=== PATIENT | female | born 1935 | race Caucasian/White ===

== ENCOUNTER → 2016-10-28 16:40 | Outpatient (CLI) | payer MEDICARE ==
[2016-04-30 16:26] VITALS: BMI 26.6
[~2016-10-28 16:40] MED LIST: AMBIEN10 MG PO; ASPIRIN81 MG PO; COUMADIN2 MG PO; COUMADIN3 MG PO; COUMADIN4 MG PO; COUMADIN6 MG PO; DEXILANT30 MG PO; GABAPENTIN100 MG PO; LEVOTHROID200 MCG PO; LISINOPRIL5 MG PO; LOMOTIL TABLET1 TAB PO; MOBIC7.5 MG PO; NEPHRO-VITE RX1 TAB PO; NEURONTIN 300300 MG PO; NORVASC5 MG PO; PLAVIX75 MG PO; PREDNISONE5 MG PO; PREDNISONE50 MG PO; PROTEIN LIQUID30 ML PO; PROTONIX40 MG PO; RENVELA800 MG PO; SYNTHROID100 MCG PO; TOPROL XL25 MG PO; ZANAFLEX4 MG PO; ZOLOFT50 MG PO
== END | disposition home or self-care (01) ==
LOC: D.MAMMO 08:30
DX: N63 Unspecified lump in breast (principal); R19.01 Right upper quadrant abdominal swelling, mass and lump

== ENCOUNTER 2016-11-05 21:01 | Emergency (ER) | payer MEDICARE ==
[2016-04-30 16:26] VITALS: BMI 26.6
[~2016-11-05 21:01] MED LIST changes: -NEURONTIN 300300 MG PO; -SYNTHROID100 MCG PO
[2016-11-05 22:32] LABS: BASOPHILS 0.5 % (0.0-2.0); EOSINOPHILS 2.3 % (0-7); HEMATOCRIT 34.5 % (36.0-48.0); IMMATURE GRANULOCYTES 0.3 % (0-5); LYMPHOCYTES 17.1 % (15-50); MCH 31.5 pg (26.0-34.0); MCHC 31.9 g/dL (31.0-37.0); MCV 98.9 fL (80.0-100.0); MEAN PLATELET VOLUME 11.2 fL (7.4-10.4); MONOCYTES 11.5 % (2-11); NEUTROPHILS 68.3 % (40-80); PLATELET COUNT 197 10x3/uL (130-400); RBC 3.49 10x6/uL (4.00-5.40); RDW 14.9 % (11.5-14.5); WBC 6.5 10x3/uL (4.8-10.8)
[2016-11-05 22:55] LABS: ALBUMIN 2.4 g/dL (3.4-5.0); ANION GAP 15.6 mmol/L (8-16); BILIRUBIN - TOTAL 0.49 mg/dL (0.2-1.3); CALCIUM 8.6 mg/dL (8.5-10.1); CARBON DIOXIDE 27.7 mmol/L (21.0-32.0); CREATININE - SERUM 4.6 mg/dL (0.6-1.3); POTASSIUM - SERUM 3.3 mmol/L (3.5-5.1); PROTEIN - SERUM 7.1 g/dL (6.4-8.2)
[2016-11-05 23:04] LABS: MAGNESIUM - SERUM 1.7 mg/dL (1.8-2.4); TROPONIN-I 0.038 ng/mL (0.000-0.060)
== END 2016-11-06 03:00 | disposition home or self-care (01) ==
LOC: D.ER 21:01
PROVIDERS: Emergency Medicine
DX: R53.1 Weakness (principal); E83.42 Hypomagnesemia; E87.6 Hypokalemia; N18.6 End stage renal disease; I12.9 Hypertensive chronic kidney disease with stage 1 through stage 4 chronic kidney disease, or unspecified chronic kidney disease; N18.9 Chronic kidney disease, unspecified

== ENCOUNTER 2016-11-08 06:53 | Emergency (ER) | payer MEDICARE ==
[2016-04-30 16:26] VITALS: BMI 26.6
== END 2016-11-08 09:34 | disposition home or self-care (01) ==
LOC: D.ER 06:53
DX: R53.1 Weakness (principal); S30.1XXA Contusion of abdominal wall, initial encounter; X58.XXXA Exposure to other specified factors, initial encounter; Y93.89 Activity, other specified; Y92.89 Other specified places as the place of occurrence of the external cause; I12.0 Hypertensive chronic kidney disease with stage 5 chronic kidney disease or end stage renal disease; N18.6 End stage renal disease

== ENCOUNTER 2016-11-10 09:44 | Emergency (ER) | payer MEDICARE ==
[2016-04-30 16:26] VITALS: BMI 26.6
[2016-11-10 10:14] LABS: BASOPHILS 0.1 % (0.0-2.0); EOSINOPHILS 0.7 % (0-7); HEMATOCRIT 35.6 % (36.0-48.0); HEMOGLOBIN 11.3 g/dL (12-16); IMMATURE GRANULOCYTES 0.3 % (0-5); LYMPHOCYTES 18.2 % (15-50); MCH 31.7 pg (26.0-34.0); MCHC 31.7 g/dL (31.0-37.0); MEAN PLATELET VOLUME 11.3 fL (7.4-10.4); MONOCYTES 7.9 % (2-11); NEUTROPHILS 72.8 % (40-80); PLATELET COUNT 167 10x3/uL (130-400); RBC 3.56 10x6/uL (4.00-5.40); RDW 14.9 % (11.5-14.5); WBC 7.3 10x3/uL (4.8-10.8)
[2016-11-10 10:36] LABS: ALBUMIN 2.2 g/dL (3.4-5.0); BILIRUBIN - TOTAL 0.5 mg/dL (0.2-1.3); CALCIUM 9.5 mg/dL (8.5-10.1); CARBON DIOXIDE 24.5 mmol/L (21.0-32.0); POTASSIUM - SERUM 3.5 mmol/L (3.5-5.1); PROTEIN - SERUM 7.1 g/dL (6.4-8.2)
[2016-11-11] MEDS ORDERED: SYNTHROID100 MCG PO (10:17)
[2016-11-11] MEDS ORDERED: NEURONTIN 300300 MG PO (10:19)
== END 2016-11-10 11:05 | disposition home or self-care (01) ==
LOC: D.ER 09:44
PROVIDERS: Emergency Medicine
DX: N64.4 Mastodynia (principal); R10.9 Unspecified abdominal pain; M79.89 Other specified soft tissue disorders; I12.0 Hypertensive chronic kidney disease with stage 5 chronic kidney disease or end stage renal disease; N18.6 End stage renal disease; F17.200 Nicotine dependence, unspecified, uncomplicated

== ENCOUNTER 2016-11-11 09:31 | Inpatient (IN) | payer MEDICARE ==
[2016-11-11] VITALS (11 sets, daily range): BP systolic 101–114; BP diastolic 34–63; BMI 25.9
[~2016-11-11] VITALS: Ht 160 cm; Wt 70.6 kg
[2016-11-11] MEDS ORDERED: SYNTHROID100 MCG PO (10:17)
[2016-11-11] MEDS ORDERED: NEURONTIN 300300 MG PO (10:19)
--- NOTE | 2016-11-11 10:29 | NUR ---
PT TO FLOOR. ADMISSION COMPLETE. COMPLETED ADMISSION TO THE BEST OF MY ABILITY PT IS VERY LETHARGIC AND NOT ANSWERING SOME QUESTIONS. WILL CALL [facility] FOR ORDERS. PT IN NO DISTRESS VS WNL WILL CONT TO MONITOR.
--- NOTE | 2016-11-11 10:52 | NUR ---
TALKED TO DIETER ABOUT PT BEING SO LETHARGIC. HER BP IS LOW. DIETER SAID TO WATCH HER CLOSELY. CALL HER IF BP DROPS AND STAYS THERE.
--- NOTE | 2016-11-11 11:30 | NUR ---
KENNEDY VALENTIN TRIED TO SITE PT PIV. KENNEDY CALLED MARKIE VASCULAR NURSE TO TRY AND SITE PT.
[2016-11-11 12:08] LABS: BASOPHILS 0.4 % (0.0-2.0); EOSINOPHILS 2.2 % (0-7); HEMATOCRIT 35.4 % (36.0-48.0); IMMATURE GRANULOCYTES 0.3 % (0-5); LYMPHOCYTES 18.3 % (15-50); MCH 31.6 pg (26.0-34.0); MCHC 31.1 g/dL (31.0-37.0); MCV 101.7 fL (80.0-100.0); MEAN PLATELET VOLUME 12.3 fL (7.4-10.4); MONOCYTES 10.5 % (2-11); NEUTROPHILS 68.3 % (40-80); PLATELET COUNT 170 10x3/uL (130-400); RBC 3.48 10x6/uL (4.00-5.40); RDW 15.4 % (11.5-14.5); WBC 7.7 10x3/uL (4.8-10.8)
[2016-11-11 12:17] LABS: INR 1.71 (0.85-1.17)
[2016-11-11 12:18] LABS: APTT 45.9 SECONDS (22.8-39.4)
--- NOTE | 2016-11-11 12:23 | NUR ---
TALKED AGAIN WITH DIETER ABOUT PT. ASKED IF LEAVE NPO UNIL DR SANTIAGO SEES PT SHE SAID YES. SAID TO CALL HER FOR ANY CHANGE IN PT STATUS. BP STILL HOLDING 111/63. PT VERY LETHARGIC
[2016-11-11 12:24] LABS: ALBUMIN 2.1 g/dL (3.4-5.0); BILIRUBIN - TOTAL 0.5 mg/dL (0.2-1.3); CALCIUM 9.1 mg/dL (8.5-10.1); PHOSPHOROUS 7.4 mg/dL (2.5-4.9); PROTEIN - SERUM 6.1 g/dL (6.4-8.2)
[2016-11-11 12:26] LABS: ANION GAP 17.2 mmol/L (8-16); POTASSIUM - SERUM 4.2 mmol/L (3.5-5.1)
--- NOTE | 2016-11-11 12:51 | NUR ---
PLACED TELE ON PT. SINUS RHYTHM PACED. 60 BPM. WAITING ON MARKIE TO SITE PT THEN WILL START FLUIDS DIETER ORDERED.
--- NOTE | 2016-11-11 14:27 | NUR ---
MARKIE SITED PT TO LEFT FA 22G. FLUIDS INFUSING AT 40CC/HR NO PROBLEMS. PT STILL LETHARGIC BUT VS STILL WNL. WILL CONT TO MONITOR.
--- NOTE | 2016-11-11 14:54 | NUR ---
CALLED TO PT ROOM. PT O2 SATS 80% ON RA AND BP 104/35. PT LETHARGIC HARD TO WAKE UP. PAGED DIETER.
--- NOTE | 2016-11-11 15:22 | NUR ---
DIETER SAID TO TRANSFER PT TO ICU. WAITING ON BED NUMBER FROM [facility]
--- NOTE | 2016-11-11 15:46 | NUR ---
CALLED REPORT TO IVAN IN ICU. TRANSFERING TO ROOM [id number]
--- NOTE | 2016-11-11 16:22 | NUR ---
1610 PT TRANSFERRED TO ICU VIA BED. PT STABLE AT THIS TIME. PT ON MONITOR AND NORMAL SINUS AT THIS TIME. PT ABLE TO FOLLOW COMMANDS AND VERBALIZE UNDERSTANDING OF TEACHING. PT RESTING AT THIS TIME. WILL CONTINUE TO MONITOR CLOSELY.
--- NOTE | 2016-11-11 18:43 | NUR ---
1800 PT ATTEMPTING TO EAT DINNER BUT FALLING ASLEEP DURING MEAL. EASILY AROUSED BUT FREQUENTLY DROWSY. VITAL SIGNS STABLE. NO FURTHER CHANGES AT THIS TIME.
--- NOTE | 2016-11-11 19:30 | NUR ---
RECEIVED PATIENT IN BED WITH EYES CLOSED, ASSESSMENT COMPLETED PER FLOWSHEET. PATIENT IS LETHARGIC BUT ORIENTED, DEMEANOR IS PLEASANT BUT FALLS ASLEEP QUICKLY. ORAL/NASAL MUCOSA IS MOIST AND INTACT, TONGUE IS MIDLINE. S1/S2 NOTED PATIENT NSR ON TELEMETRY WITH PACEMAKER, RHYTHMIC AND REGULAR. BREATHING IS SHALLOW WITH DIMINISHED SOUNDS IN ALL LOBES, PATIENT ON 4L O2 VIA NC WITH SAT 96%. ABDOMEN IS DISTENDED AND FIRM BUT NON-TENDER TO PALPATION, BOWEL SOUNDS ACTIVE X4. FIRM AREA R ABDOMEN WITH BRUISING PRESENT, PATIENT STATES NO PAIN AT SITE. FULL ROM ALL EXTREMITIES WITH ALL PULSES PALPABLE, INSTRUMENT SETTER/PEDAL STRENGTH EQUAL/BILATERAL. PATIENT R ARM RESERVE WITH HERO GRAFT IN R ARM, T/TH/SAT DIALYSIS PATIENT. 20G PIV NOTED L WRIST, PATENT WITH FLUIDS INFUSING. PATIENT DENIES PAIN OR OTHER NEEDS AT THIS TIME, ALL VSS AND WILL CONTINUE TO MONITOR.
--- NOTE | 2016-11-11 21:00 | NUR ---
NO VISITORS AT THIS TIME, PATIENT RESTING IN BED WITH EYES CLOSED. PATIENT LETHARGIC BUT AWAKENS TO VOICE/TOUCH EASILY, DENIES NEEDS AT THIS TIME/ ALL VSS AND WILL CONTINUE TO MONITOR.
--- NOTE | 2016-11-11 23:00 | NUR ---
REASSESSMENT COMPLETED PER FLOWSHEET, PATIENT RESTING IN BED WITH EYES CLOSED. NSR WITH PACEMAKER ON TELEMETRY, S1/S2 NOTED WITH HR 61. BREATHING IS SHALLOW WITH DIMINISHED SOUNDS THROUGHOUT, 4L VIA NC WITH OXYGEN SAT 96%. PATIENT OPENS EYES TO VOICE AND WILL REPOSITION INDEPENDENTLY, STILL DOES NOT FOLLOW COMMANDS. NO FURTHER NEEDS AT THIS TIME, ALL VSS AND WILL CONTINUE TO MONITOR.
[2016-11-12] VITALS (21 sets, daily range): BP systolic 99–126; BP diastolic 33–68; Ht 160 cm; Wt 70.6 kg
--- NOTE | 2016-11-12 03:00 | NUR ---
REASSESSMENT COMPLETED PER FLOWSHEET, PATIENT RESTING IN BED WITH EYES CLOSED. PATIENT NSR WITH PACEMAKER ON TELEMETRY, HR 62 RHYTHMIC AND REGULAR. BREATHING IS SHALLOW WITH DIMINIHED LUNG SOUNDS IN ALL LOBES, OXYGEN SAT 97% ON 4L VIA NC. R LOWER ABDOMEN DISTENDED AND FIRM, NO C/O PAIN AT SITE AND NON-TENDER TO PALPATION. PATIENT STATES PAIN 3/10 IN BACK AND "JUST CAN'T GET COMFORTABLE", REPOSITIONED IN BED AND PATIENT STATES RELIEF. NO FURTHER NEEDS AT THIS TIME, ALL VSS AND WILL CONTINUE TO MONITOR.
[2016-11-12 05:03] LABS: BASOPHILS 0.2 % (0.0-2.0); EOSINOPHILS 3.3 % (0-7); HEMATOCRIT 33.1 % (36.0-48.0); HEMOGLOBIN 10.4 g/dL (12-16); IMMATURE GRANULOCYTES 0.5 % (0-5); MCH 31.2 pg (26.0-34.0); MCHC 31.4 g/dL (31.0-37.0); MEAN PLATELET VOLUME 12.6 fL (7.4-10.4); RBC 3.33 10x6/uL (4.00-5.40); RDW 14.8 % (11.5-14.5); WBC 8.5 10x3/uL (4.8-10.8)
[2016-11-12 05:21] LABS: MCV 99.4 fL (80.0-100.0); PLATELET COUNT 128 10x3/uL (130-400)
[2016-11-12 05:23] LABS: ANION GAP 19.1 mmol/L (8-16); CALCIUM 9.1 mg/dL (8.5-10.1); CREATININE - SERUM 7.8 mg/dL (0.6-1.3); POTASSIUM - SERUM 4.3 mmol/L (3.5-5.1)
[2016-11-12 05:47] LABS: INR 1.63 (0.85-1.17); PROTIME 19.3 SECONDS (11.6-15.0)
[2016-11-12 05:53] LABS: CARBON DIOXIDE 19.2 mmol/L (21.0-32.0)
--- NOTE | 2016-11-12 07:59 | NUR ---
0800- PT AWAKE AND ALERT, ORIENTED, VSS, AFEBRILE. BREAKFAST TRAY SERVED.
--- NOTE | 2016-11-12 12:02 | NUR ---
* Is the patient Alert and Oriented? Yes 0 * How many steps to enter\exit or inside your home? ELEVATOR 0 * PCP DR. BOND 0 * Pharmacy [facility] [address] 0 * Preadmission Environment Home Alone 0 * ADLs Independent 0 * Equipment Oxygen Rolling Walker Wheelchair 0 * Other Equipment PATENT'S O2 PROVIDED BY [facility] 0 * List name and contact numbers for known caregivers / representatives who currently or will assist patient after discharge: DAUGHTER: ALFREDO [phone] 0 * Community resources currently utilized None 0 * Additional services required to return to the preadmission environment? No 0 * Can the patient safely return to the preadmission environment? Yes 0 * Has this patient been hospitalized within the prior 30 days at any hospital? No PATIENT IS AWAKE AND ALERT. SHE IS UNDERGOING DIALYSIS AT THE BEDSIDE. PATIENT DOES DIALYSIS AT [facility] ON [facility] [facility] [facility]. SHE RIDES THE IT BUS TO AND FROM HER DIALYSIS ON , FRI. PATIENT STATES HER PCP IS DR. BOND. SHE GETS HER MEDS FROM [facility] ON [address] PATIENT STATES SHE HAS A WALKER, W/C, AND O2 AT HOME. PATIENT STATES SHE GETS HER O2 FROM [facility]. PATIENT STATES SHE HAD HOME HEALTH IN THE PAST BUT DOES NOT RECALL THE NAME OF THE AGENCY. PATIENT STATES THERE IS AN ELEVATOR TO ENTER HER BUILDING AT [facility]. SHE STATES THAT IF SHE NEEDS ASSISTANCE HER DAUTHER, ALFREDO, HELPS HER. DISCHARGE NEEDS ARE UNDETERMINED AT THIS TIME. CM TO FOLLOW.
--- NOTE | 2016-11-12 15:08 | NUR ---
HD COMPLETE, VSS. PT PRIYANKA WELL.
--- NOTE | 2016-11-12 19:30 | NUR ---
RECEIVED PATIENT RESTIN IN BED WITH EYES CLOSED, ASSESSMENT COMPLETED PER FLOWSHEET. PATIENT AO X4, DEMEANOR IS PLEASANT AND CALM. EYES PERRLA @ 3MM WITH BRISK RESPONSE, SCLERA IS WHITE. ORAL/NASAL MUCOSA IS MOIST AND INTACT, TONGUE MIDLINE. S1/S2 NOTED WITH PATIENT NSR WITH PACEMAKER ON TELEMETRY, HR 77 RHYTHMIC AND REGULAR. BREATHING IS SHALLOW WITH USE OF ACCESSORY MUSCLES, LUNG SOUNDS DIMINISHED ALL LOBES WITH OXYGEN SAT 96% ON 4L VIA NC. R LOWER ABDOMEN DISTENDED AND FIRM WITH BRUISING NOTED, BOWEL SOUNDS ACTIVE X4. PATIENT ANURIC, ABLE TO USE BEDPAN FOR VOIDING WHEN NEEDED. FULL ROM ALL EXTREMITIES WITH WEAKNESS NOTED ALL EXTREMITIES, ALL PULSES PALPABLE WITH CAP REFILL <3 SEC. 20G PIV NOTED L WRIST, PATENT WITH FLUIDS INFUSING. PATIENT DENIES PAIN OR OTHER NEEDS AT THIS TIME, ALL VSS AND WILL CONTINUE TO MONITOR.
--- NOTE | 2016-11-12 21:00 | NUR ---
PATIENT RESTING IN BED WITH EYES OPEN, C/O BACK PAIN 11/15. REPOSITIONED FOR COMFORT, PATIENT STATES "SOME RELIEF". NO FURTHER NEEDS AT THIS TIME, ALL VSS AND WILL CONTINUE TO MONITOR.
--- NOTE | 2016-11-12 23:00 | NUR ---
PATIENT RESTING IN BED WITH EYES CLOSED WITH THE TV ON. BREATHING IS SHALLOW WITH OXYGEN SAT 95% ON 4L VIA NC. S1/S2 NOTED WITH PATIENT NSR ON TELMETRY, HR 78 AND RHYTHMIC. NO FURTHER NEEDS AT THIS TIME, ALL VSS AND WILL CONTINUE TO MONITOR.
[2016-11-13] VITALS (12 sets, daily range): BP systolic 105–153; BP diastolic 36–76
--- NOTE | 2016-11-13 01:16 | NUR ---
PATIENT RESTING IN BED WITH EYES CLOSED. PATIENT C/O BACK PAIN 10/18, REPOSITIONED FOR COMFORT AND PATIENT STATE RELIEF. NO FURTHER NEEDS AT THIS TIME, ALL VSS AND WILL CONTINUE TO MONITOR.
--- NOTE | 2016-11-13 07:30 | NUR ---
REC'D BEDSIDE SHIFT REPORT FROM EDELMIRA, SUJATHA RESUMED CARE, SLEEPING WITH NO SIGNS OF DISTRES, AROUSABLE TO VERBAL STIMULI, ORIENTED x4, O2 VIA NC AT 4L, SAT 98%, C/O PAIN 10/10 ALL OVER BODY, PREVIOUSLY GIVEN BUPERNIX, ASSESSMENT COMPLETE PER FLOWSHEET, REPOSITIONED UP IN BED TO BACK FOR BREAKFAST, STATES NOT HUNGRY, DRINKING ONLY, CALL LIGHT IN REACH, NO OTHER NEEDS AT THIS TIME
[2016-11-13 07:41] LABS: BASOPHILS 0.2 % (0.0-2.0); EOSINOPHILS 1.8 % (0-7); HEMATOCRIT 30.5 % (36.0-48.0); HEMOGLOBIN 9.5 g/dL (12-16); IMMATURE GRANULOCYTES 0.1 % (0-5); MCH 31.3 pg (26.0-34.0); MCHC 31.1 g/dL (31.0-37.0); MCV 100.3 fL (80.0-100.0); MEAN PLATELET VOLUME 12.2 fL (7.4-10.4); MONOCYTES 10.9 % (2-11); PLATELET COUNT 152 10x3/uL (130-400); RBC 3.04 10x6/uL (4.00-5.40); RDW 14.5 % (11.5-14.5); WBC 8.7 10x3/uL (4.8-10.8)
[2016-11-13 07:56] LABS: INR 1.9 (0.85-1.17); PROTIME 21.8 SECONDS (11.6-15.0)
[2016-11-13 08:22] LABS: CREATININE - SERUM 6.6 mg/dL (0.6-1.3); PHOSPHOROUS 7.1 mg/dL (2.5-4.9); VANCOMYCIN - RANDOM 16.1 ug/mL (10.0-20.0)
[2016-11-13 08:36] LABS: ANION GAP 16.9 mmol/L (8-16); CARBON DIOXIDE 25.7 mmol/L (21.0-32.0); POTASSIUM - SERUM 3.6 mmol/L (3.5-5.1)
--- NOTE | 2016-11-13 09:00 | NUR ---
REPORT CALLED TO KRISTY EDUARDO RN FOR PENDING TRANSFER
--- NOTE | 2016-11-13 09:20 | NUR ---
LEFT WRIST PIV PULLED OUT, SKINCARE AND GAUZE DRESSING APPLIED
--- NOTE | 2016-11-13 09:30 | NUR ---
TRANSPORTED TO 2107 VIA BED, AWAKE AND ALERT, NAUSEA WITH GREENISH EMESIS, ORAL CARE GIVEN, REPORTED TO KRISTY EDUARDO RN, PER TELEMERTY STAGECRAFT PROFESSOR WILL NO BE ABLE TO START UNTIL PENDING DISCHARGES ARE COMPLETED, REPOSITIONED UP AND TO BACK FOR COMFORT, ACCLAMATED TO ROOM, CALL RIGHT IN REACH, PRIMARY NURSE AT BEDSIDE, NO OTHER NEEDS AT THIS TIME
--- NOTE | 2016-11-13 09:42 | NUR ---
RECEIVED PT FROM ICU VIA BED AT THIS TIME. WILL CONTINUE PLAN OF CARE. NO OTHER NEEDS AT THIS TIME. WILL CONTINUE TO MONITOR.
--- NOTE | 2016-11-13 11:23 | NUR ---
PT IS ALERT. NO SS OF DISTRESS AT THIS TIME. WILL CONTINUE TO MONITOR. NO OTHER NEEDS
--- NOTE | 2016-11-13 12:00 | NUR ---
22G IV STARTED IN LEFT FA. SALINE LOCKED. PT TOLERATED WELL. PT REFUSES LUNCH TRAY.
--- NOTE | 2016-11-13 19:57 | NUR ---
INTRODUCED MYSELF TO PT PRIMARY RN FOR [facility] SHIFT. PT IS SITTING UP IN BED RESTING QUIETLY. ALERT & ORIENTED. SHIFT ASSESSMENT COMPLETED AND STATISTICS MANAGER MAKING ROUNDS FOR VITALS. PT DENIES ANY CURRENT NEEDS AT THIS TIME WILL PULL NIGHTLY SCHEDULED MEDICATIONS AND CONTINUE WITH PLAN OF CARE. CL IN REACH, BED IN LOWEST, SIDE RAILS X2.
[2016-11-14] VITALS: BP 179/46
[2016-11-14 04:00] VITALS: BP 153/56
[2016-11-14 04:38] LABS: BASOPHILS 0.1 % (0.0-2.0); EOSINOPHILS 1.2 % (0-7); HEMATOCRIT 30.7 % (36.0-48.0); HEMOGLOBIN 9.6 g/dL (12-16); IMMATURE GRANULOCYTES 0.3 % (0-5); LYMPHOCYTES 13.9 % (15-50); MCH 30.8 pg (26.0-34.0); MCHC 31.3 g/dL (31.0-37.0); MCV 98.4 fL (80.0-100.0); MEAN PLATELET VOLUME 12.3 fL (7.4-10.4); MONOCYTES 8.6 % (2-11); NEUTROPHILS 75.9 % (40-80); PLATELET COUNT 170 10x3/uL (130-400); RBC 3.12 10x6/uL (4.00-5.40); RDW 14.7 % (11.5-14.5)
[2016-11-14 04:58] LABS: INR 2.12 (0.85-1.17); PROTIME 23.8 SECONDS (11.6-15.0)
[2016-11-14 05:01] LABS: ANION GAP 15.9 mmol/L (8-16); CALCIUM 9.6 mg/dL (8.5-10.1); CARBON DIOXIDE 28.3 mmol/L (21.0-32.0); CREATININE - SERUM 7.8 mg/dL (0.6-1.3); PHOSPHOROUS 8.7 mg/dL (2.5-4.9)
[2016-11-14 05:07] LABS: POTASSIUM - SERUM 4.2 mmol/L (3.5-5.1)
[2016-11-14 07:00] VITALS: BP 147/45
--- NOTE | 2016-11-14 08:00 | NUR ---
PATIENT AWAKE, ALERT/ORIENT X4. TELEMTRY IN PLACE. PACEMAKER NOTED. LEFT BREAST IV SITE. RESERVE RIGHT ARM MAINTAINED. PATIENTS BED DOES NOT WORK. WORK ORDER IN.
--- NOTE | 2016-11-14 09:10 | NUR ---
DIALYSIS AT BS. CALL LIGHT IN REACH. WILL MONITOR NEEDS.
--- NOTE | 2016-11-14 09:40 | NUR ---
CRYSTALLOGRAPHER IN PATIENTS ROOM. GIVING TX.
--- NOTE | 2016-11-14 11:35 | NUR ---
PRN BURPRENEX GIVEN FOR BREAST PAIN.
[2016-11-14 12:02] VITALS: BP 124/48
--- NOTE | 2016-11-14 13:26 | NUR ---
Mrs. Elizalde had bedside hemodialysis today via her right upper arm av graft from 0925 until 1255. Average blood flow was 350 mls/minute. Pt. was hypotensive during treatment. Net fluid removed was 1500 mls. Post vital signs were: B/P: 105/40, HR:77, Temp:98.2, Resps:20.
--- NOTE | 2016-11-14 13:27 | NUR ---
RESEARCH SOIL SCIENTIST GAVE REPORT TO THIS NURSE. STATED THAT 1,500CC FLUID HAS BEEN DRAINED OFF OF PATIENT.
--- NOTE | 2016-11-14 14:34 | NUR ---
SUJATHA BERNARD CHARGE NURSE IN PATIENTS ROOM DOING AN ELECTROCARDIOGRAM.
[2016-11-14 14:49] LABS: BASOPHILS 0.1 % (0.0-2.0); EOSINOPHILS 0.6 % (0-7); HEMATOCRIT 29.6 % (36.0-48.0); HEMOGLOBIN 9.5 g/dL (12-16); IMMATURE GRANULOCYTES 0.3 % (0-5); LYMPHOCYTES 6.9 % (15-50); MCH 31.3 pg (26.0-34.0); MCHC 32.1 g/dL (31.0-37.0); MCV 97.4 fL (80.0-100.0); MEAN PLATELET VOLUME 12.9 fL (7.4-10.4); MONOCYTES 8.4 % (2-11); NEUTROPHILS 83.7 % (40-80); PLATELET COUNT 180 10x3/uL (130-400); RBC 3.04 10x6/uL (4.00-5.40); RDW 14.4 % (11.5-14.5); WBC 9.9 10x3/uL (4.8-10.8)
[2016-11-14 15:10] LABS: ANION GAP 14.1 mmol/L (8-16); CALCIUM 8.7 mg/dL (8.5-10.1); CARBON DIOXIDE 32.1 mmol/L (21.0-32.0)
[2016-11-14 15:12] LABS: CREATININE - SERUM 2.8 mg/dL (0.6-1.3); POTASSIUM - SERUM 3.2 mmol/L (3.5-5.1)
[2016-11-14 15:27] VITALS: BP 138/39
--- NOTE | 2016-11-14 17:25 | NUR ---
PATIENT PULLED UP IN BED TO EAT SUPPER.
[2016-11-14 20:00] VITALS: BP 131/44
[2016-11-15] VITALS (8 sets, daily range): BP systolic 131–147; BP diastolic 37–53
--- NOTE | 2016-11-15 01:48 | NUR ---
PT AWAKE WATCHING TV. RR NONLABORED ON 2L NC. ASSISTED PT REPOSTIONING FOR COMFORT. PT DENIES ANY CURRENT PAIN AND STATES SHE IS COMFORTABLY. NO CURRENT NEEDS AT THIS TIME. CL IN REACH. WILL CTM.
--- NOTE | 2016-11-15 05:37 | NUR ---
HELD MORNING AM PROTONIX AND SYNTHROID R/T NPO ORDER FOR R.MASTECTOMY TODAY. PT REQUESTED AND WAS PROVIDED WITH PRN PAIN MEDICATION VIA L.BREAST PIV SITE. DRSG CDI AND SWAB CAPS IN USE. PT RESTING AND DENIES ANY FURTHER NEEDS AT THIS TIME. CL IN REACH, BED IN LOWEST, SIDE RAILS X2. WILL CPOC.
[2016-11-15 06:15] LABS: BASOPHILS 0.1 % (0.0-2.0); EOSINOPHILS 0.8 % (0-7); HEMATOCRIT 29.5 % (36.0-48.0); HEMOGLOBIN 9.2 g/dL (12-16); IMMATURE GRANULOCYTES 0.3 % (0-5); LYMPHOCYTES 12.3 % (15-50); MCH 31.1 pg (26.0-34.0); MCHC 31.2 g/dL (31.0-37.0); MCV 99.7 fL (80.0-100.0); MEAN PLATELET VOLUME 12.3 fL (7.4-10.4); MONOCYTES 9.3 % (2-11); NEUTROPHILS 77.2 % (40-80); PLATELET COUNT 188 10x3/uL (130-400); RBC 2.96 10x6/uL (4.00-5.40); RDW 14.6 % (11.5-14.5); WBC 9.5 10x3/uL (4.8-10.8)
[2016-11-15 06:44] LABS: ANION GAP 15.1 mmol/L (8-16); CALCIUM 9.5 mg/dL (8.5-10.1); CARBON DIOXIDE 30.2 mmol/L (21.0-32.0); POTASSIUM - SERUM 3.3 mmol/L (3.5-5.1)
[2016-11-15 06:47] LABS: CREATININE - SERUM 4.3 mg/dL (0.6-1.3); PHOSPHOROUS 5.4 mg/dL (2.5-4.9)
[2016-11-15 08:39] LABS: INR 2.21 (0.85-1.17); PROTIME 24.6 SECONDS (11.6-15.0)
--- NOTE | 2016-11-15 10:14 | NUR ---
PRN BUPRENEX ADMINISTERED PER ORDERS FOR C/O PAIN 04/17.
--- NOTE | 2016-11-15 10:53 | NUR ---
PATIENT PATHWYAS: [facility] Fri/Fri/Fri @ 11:00am. Med recs sent to the unit. BMM Dialysis Coordinator.
--- NOTE | 2016-11-15 13:29 | NUR ---
PRE OP ADMINISTERED PER ORDERS.
--- NOTE | 2016-11-15 14:29 | NUR ---
DOWN TO SURGERY VIA BED.
--- NOTE | 2016-11-15 15:17 | NUR ---
RECEIVED PATIENT LAYING IN BED. ALERT AND ORIENTED. LABILE AEB TALKING CALMLY ONE MINUTE AND THE NEXT WILL BE TEARFUL. C/O CONSTANT PAIN TO THE BREASTS AND ABDOMEN RATED 10/10. IV OF NS INFUSING AT 20CC/HR PER LEFT BREAST AREA. O2 AT 2L/MIN PER NC IN USE. BRUISING TO UPPER EXTS AND BRUISING WITH DARK LESION TO RIGHT BREAST NIPPLE AREA AND BRUISING TO ABDOMEN BELOW BREASTS. NPO FOR SURGERY TODAY. BRUIT AND THRILL PRESENT TO RIGHT UPPER ARM HERO GRAFT. BED IN LOW POSITION AND CALL LIGHT WITHIN REACH.
--- NOTE | 2016-11-15 15:46 | NUR ---
NOR REDOSING OF ANTIBIOTICS BEFORE SURGICAL INCISION PER DR. SANTIAGO
--- NOTE | 2016-11-15 18:55 | NUR ---
HOLDING TIME IN RECOVERY DUE TO NO ICU BEDS. THE PATIENT REMAINS STABLE IN RR
--- NOTE | 2016-11-15 19:56 | NUR ---
PT ARRIVED FROM PACU VIA BED AND SCORTED BY 2 OR STAFF. PT WAS CONNECTED TO MONITORS AND VITALS TAKEN. A FULL HEAD TO TOE ASSESSMENT WAS COMPLETE, PLEASE SEE FLOW SHEETS FOR FULL DETAILS. DENIES PAIN/NEEDS ATT. LARGE WOUND VAC TO RIGHT UPPER ABDOMINAL AREA WHERE MASTECTOMY WAS PERFORMED. PIV IN LEFT WRIST WITH NS INFUSING AT 20ML/HR. OXYMIZER ON AT 4L/M. VSS, BED LOW AND LOCKED, CALL LIGHT IN REACH. WILL CONTINUE TO MONITOR.
--- NOTE | 2016-11-15 21:00 | NUR ---
DENIES PAIN/NEEDS ATT, OFFERED SIPS OF WATER AND WERE TOLERATED WELL. BED LOW AND LOCKED, CALL LIGHT IN REACH. WILL CONTINUE TO MONITOR.
--- NOTE | 2016-11-15 23:05 | NUR ---
REASSESSMENT COMPLETE, PLEASE SEE FLOW SHEETS FOR DETAILS. VSS, BED LOW AND LOCKED. DENIES PAIN/NEEDS ATT. CALL LIGHT IN REACH. WILL CONTINUE TO MONITOR.
[2016-11-16] VITALS (24 sets, daily range): BP systolic 83–141; BP diastolic 33–78
--- NOTE | 2016-11-16 00:54 | NUR ---
PT SLEEPING, NO S&S OF ACUTE DISTRESS NOTED. VSS, BED LOW AND LOCKED. CALL LIGHT IN REACH. WILL CONTINUE TO MONTIOR.
--- NOTE | 2016-11-16 03:00 | NUR ---
REASSESSMENT COMPLETE, PLEASE SEEF LOW SHEETS FOR DETAILS. VSS, DENIES PAIN/NEEDS ATT. BED LOW AND LOCKED, CALL LIGHT IN REACH. WILL CONTINUE TO MONITOR.
--- NOTE | 2016-11-16 05:03 | NUR ---
PT RESTING. VSS, BED LOW AND LOCKED, CALL LIGHT IN REACH. WILL CONTINUE TO MONITOR.
--- NOTE | 2016-11-16 07:00 | NUR ---
0700 REC'D REPORT FROM OUTGOING RN PT LYING IN BED WITH EYES CLOSED RESP REG RATE AND RHYTHM. CPOC. 0830 MEDICATIONS GIVEN - PT WILL REC'D DIALYSIS TODAY. PROFESSOR OF FORESTRY AT BEDSIDE TO SET UP PROCEDURE. 0900 MEDICATIONS GIVEN TO PT - PT UNABLE TO EAT BREAKFAST - PT WEAK AND FALLS ASLEEP EAISLY - WILL MONITOR - INFORMED RENEAL SHINGLE CATCHER - PT C/O PAIN 8/10 - ORDERS TO GIVE TYENOL q6HRS. FOR PAIN - - SEE FLOW SHEET 0944 PROFESSOR OF FORESTRY - PROVIDED A CHANGE IN RHYTHM - EKG COMPLETED - LEFT BUNDLE BRANCH BLOCK - PT DENIED ANY DISCOMFORT EXCEPT FROM INCISION. - MEDIATION GIVEN. 1100 ASSESSMENT COMPLETE - DIALYSIS CONT - CPOC 1300 TEACHER [employer] CALLED TO ASKED THIS RN TO CALL [facility] TO INFORM HER OF ANY CHANGES IN PTs CONDITION, ASLO, ASK DR. SANTIAGO TO SPEAK TO FAMILY WHEN HE ARRIVES. CONT POC. ~1400 DIALYSIS COMPLETE - PT RESTING WITH EYES CLOSED - EAISLY AWAKEN BY VERBAL STIMULI 1500 ASSESSMENT COMPLETE - NO ACUTE CHANGES 1600 I&O COMPLETE - SEE FLOW CHART 1800 FAMLY AT BEDSIDE PASSWORD "VÍCTOR YEH" ESTABLISHED 190 REPORT GIVEN TO ONCOMING RN.
[2016-11-16 08:06] LABS: BASOPHILS 0.4 % (0.0-2.0); EOSINOPHILS 2.1 % (0-7); HEMATOCRIT 32.2 % (36.0-48.0); HEMOGLOBIN 9.6 g/dL (12-16); IMMATURE GRANULOCYTES 0.4 % (0-5); LYMPHOCYTES 13.5 % (15-50); MCH 31.1 pg (26.0-34.0); MCHC 29.8 g/dL (31.0-37.0); MEAN PLATELET VOLUME 12.1 fL (7.4-10.4); MONOCYTES 8.8 % (2-11); NEUTROPHILS 74.8 % (40-80); RBC 3.09 10x6/uL (4.00-5.40); WBC 11.1 10x3/uL (4.8-10.8)
[2016-11-16 08:08] LABS: MCV 104.2 fL (80.0-100.0); PLATELET COUNT 236 10x3/uL (130-400)
[2016-11-16 08:22] LABS: ANION GAP 20.3 mmol/L (8-16); CALCIUM 9.2 mg/dL (8.5-10.1); CARBON DIOXIDE 24.8 mmol/L (21.0-32.0); PHOSPHOROUS 6.3 mg/dL (2.5-4.9)
[2016-11-16 08:31] LABS: CREATININE - SERUM 5.7 mg/dL (0.6-1.3); POTASSIUM - SERUM 4.1 mmol/L (3.5-5.1)
--- NOTE | 2016-11-16 15:19 | NUR ---
Mrs. Elizalde had bedside hemodialysis today via her right upper arm av graft from 0901 until 1230. Average blood flow was 350 mls/minute. Pt. was very hypotensive today requiring one normal saline bolus of 200 mls and one dose of albumin 12.5 grams IV. Net fluid was omly 377 mls. Pt. had some arrythmias as well and a 12 lead ekg was done which indicated a left bundle branch block. Her rhthym was paced often. Post vital signs were: B/P:120/42, HR: 98, Temp;98.1, Resps:18.
--- NOTE | 2016-11-16 19:00 | NUR ---
REPORT RECIEVED, INITIAL ASSESSMENT COMPLETE, PLEASE SEE FLOW SHEETS FOR DETAILS. PT COMPLAINS OF 6/10 AT INCISION SITE. DENIES NEEDS ATT. CONFUSED TO TIME, REORIENTED NECESSARY. PUPILS 3MM AND REACTIVE TO LIGHT. PPP. S1S2 AUSCULTATED, PACEMAKER PRESENT AT LEFT CLAVICUAR AREA. LUNG SOUNDS CRACKLES BILATERALLY AND DIMINISHED IN LOWER LOBES. VSS, BED LWO AND LOCKED, CALL LIGHT IN REACH. WILL CONTINUE TO MONITOR.
--- NOTE | 2016-11-16 21:00 | NUR ---
PT WOKE UP TO TAKE MEDS. SPILLED ON BLANKET AND GOWN, THESE WERE REPLACED WITH NEW ONES. BED LOW AND LOCKED, CALL LIGHT IN REACH. PT REQUESTED ICE WATER AND THIS WAS PROVIDED. VSS, WILL CONTINUE TO MONITOR.
--- NOTE | 2016-11-16 23:15 | NUR ---
REASSESSMENT COMPLETE, PLEASE SEE FLOW SHEETS FOR DETAILS. BED LOW AND LOCKED CALL LIGHT IN REACH. DENIES ANY PAIN ATT, VSS, WILL CONTINUE TO MONITOR.
[2016-11-17] VITALS (23 sets, daily range): BP systolic 103–182; BP diastolic 41–90
--- NOTE | 2016-11-17 01:00 | NUR ---
PT AWAKE, WATCHING TELEVISION. DENIES PAIN/NEEDS ATT. BED LOW AND LOCKED, CALL LIGHT IN REACH. VSS, NO S&S OF ACUTE DISTRESS NOTED. RR EVEN AND UNLABORED. WILL CONTINUE TO MONITOR.
--- NOTE | 2016-11-17 03:21 | NUR ---
REASSESSMENT COMPLETE, PLEASE SEE FLOW SHEETS FOR DETAILS. BED LOW AND LOCKED, CALL LIGHT IN REACH. VSS, DENIES PAIN/NEEDS ATT. WILL CONTINUE TO MONITOR.
--- NOTE | 2016-11-17 05:00 | NUR ---
PT RESTING, RR EVEN AND UNLABORED. VSS. BED LOW AND LOCKED, CALL LIGHT IN REACH. DENIES PAIN/NEEDS ATT. WILL CONTINUE TO MONITOR.
[2016-11-17 05:35] LABS: BASOPHILS 0.1 % (0.0-2.0); EOSINOPHILS 0.9 % (0-7); HEMATOCRIT 27.1 % (36.0-48.0); HEMOGLOBIN 8.4 g/dL (12-16); IMMATURE GRANULOCYTES 0.3 % (0-5); LYMPHOCYTES 13.6 % (15-50); MCH 31.3 pg (26.0-34.0); MEAN PLATELET VOLUME 11.9 fL (7.4-10.4); MONOCYTES 8.8 % (2-11); NEUTROPHILS 76.3 % (40-80); PLATELET COUNT 236 10x3/uL (130-400); RBC 2.68 10x6/uL (4.00-5.40); RDW 14.7 % (11.5-14.5); WBC 9.7 10x3/uL (4.8-10.8)
[2016-11-17 05:38] LABS: MCV 101.1 fL (80.0-100.0)
[2016-11-17 06:04] LABS: ANION GAP 16.1 mmol/L (8-16); CALCIUM 9.3 mg/dL (8.5-10.1); CARBON DIOXIDE 27.2 mmol/L (21.0-32.0); THYROID STIMULATING HORMONE 0.01 uIU/mL (0.36-3.74); VANCOMYCIN - RANDOM 18.2 ug/mL (10.0-20.0)
[2016-11-17 06:05] LABS: CREATININE - SERUM 3.4 mg/dL (0.6-1.3); PHOSPHOROUS 4.6 mg/dL (2.5-4.9); POTASSIUM - SERUM 3.3 mmol/L (3.5-5.1)
--- NOTE | 2016-11-17 19:00 | NUR ---
REPORT RECIEVED, INITIAL ASSESSMENT COMPLETE, PLEASE SEE FLOW SHEETS FOR DETAILS. PT COMPLAINED OF PAIN 8/10 AT INCISION SITE, WILL GIVE PAIN MEDS ORDERED. DENIES ANY OTHER NEEDS ATT. VSS, BED LOW AND LOCKED, CALL LIGHT IN REACH. WILL CONTINUE TO MONITOR.
--- NOTE | 2016-11-17 21:00 | NUR ---
PT RESTING, BED LOW AND LOCKED, CALL LIGHT IN REACH. VSS, WILL CONTINUE TO MONITOR.
--- NOTE | 2016-11-17 23:00 | NUR ---
REASSESSMENT COMPLETE, PLEASE SEE FLOW SHEETS FOR DETAILS. COMPLETE LINEN CHANGE PROVIDED. DENIES PAIN/NEEDS ATT. VSS, BED LOW AND LOCKED, CALL LIGHT IN REACH. WILL CONTINUE TO MONITOR.
[2016-11-18] VITALS (25 sets, daily range): BP systolic 102–163; BP diastolic 36–108
--- NOTE | 2016-11-18 01:00 | NUR ---
PT RESTING. VSS, BED LOW AND LOCKED, CALL LIGHT IN REACH. DENIES PAIN/NEEDS ATT. WILL CONTINUE TO MONITOR.
--- NOTE | 2016-11-18 03:00 | NUR ---
REASSESSMENT COMPLETE, PLEASE SEE FLOW SHEETS FOR DETAILS. BED LOW AND LOCKED, CALL LIGHT IN REACH. VSS, WILL CONTINUE TO MONITOR.
[2016-11-18 03:38] LABS: BASOPHILS 0.2 % (0.0-2.0); EOSINOPHILS 0.6 % (0-7); HEMATOCRIT 28.6 % (36.0-48.0); HEMOGLOBIN 8.8 g/dL (12-16); IMMATURE GRANULOCYTES 0.4 % (0-5); LYMPHOCYTES 7.6 % (15-50); MCH 30.7 pg (26.0-34.0); MCHC 30.8 g/dL (31.0-37.0); MCV 99.7 fL (80.0-100.0); MEAN PLATELET VOLUME 11.9 fL (7.4-10.4); MONOCYTES 8.9 % (2-11); NEUTROPHILS 82.3 % (40-80); PLATELET COUNT 283 10x3/uL (130-400); RBC 2.87 10x6/uL (4.00-5.40); RDW 14.5 % (11.5-14.5)
[2016-11-18 03:43] LABS: WBC 12.2 10x3/uL (4.8-10.8)
[2016-11-18 04:01] LABS: ANION GAP 18.7 mmol/L (8-16); CALCIUM 9.4 mg/dL (8.5-10.1); CARBON DIOXIDE 24.8 mmol/L (21.0-32.0); CREATININE - SERUM 4.3 mg/dL (0.6-1.3); POTASSIUM - SERUM 4.5 mmol/L (3.5-5.1); VANCOMYCIN - RANDOM 15.5 ug/mL (10.0-20.0)
--- NOTE | 2016-11-18 05:00 | NUR ---
PT RESTING, DENIES PAIN/NEEDS ATT, VSS, BED LOW AND LOCKED, CALL LIGHT IN REACH. WILL CONTINUE TO MONITOR.
--- NOTE | 2016-11-18 12:19 | NUR ---
Nutrition follow-up: Diet: Renal ADA puree with regular liquids PO intake ~50% of meals Labs reviewed Will continue to provide food choices and honor food preferences. RDN will order Nepro BID. Following.
--- NOTE | 2016-11-18 13:42 | NUR ---
Patient Name: MURRAY AGUILAR Encounter No: [id number] : 1935 Primary Insurance: MEDICARE A & B Anticipated DC Date: Planned Disposition: [facility] External Planned Provider: MARGARITA KLINE DCP follow-up note: CM RECEIVED DISCHARGE PLANNING ORDER FOR [facility] OR [facility]. CM MET WITH PT IN ROOM TO DISCUSS DISCHARGE NEEDS. PT REPORTS SHE IS TOO SICK TO GO HOME. CM DISCUSSED [facility] OPTIONS AND [facility] FACILITY OPTIONS. PT DOES NOT WANT TO CONSIDER [facility] UNLESS IT IS THE ONLY OPTION. PT WILL CONSIDER [facility] AT [facility]. CM NOTIFIED RN VICKIE DAVILA WHO SPOKE TO BAKARI WHO WILL EVALUATE PT FOR LTACH ADMISSION. CM WAITING ADMISSION DETERMINATION FROM MARGARITA KLINE. Michael Brunson, CASE MANAGEMENT
--- NOTE | 2016-11-18 13:57 | NUR ---
WOUND CARE / WOUND VAC DRESSING CHANGE: OPEN WOUND RIGHT UPPER QUAD/ABDOMEN MEASURING 10CM X 20CM X 3CM. (SURGICAL) GENTLY CLEANSED AND DRIED AND BLACK FOAM APPLIED TO WOUND BED. COVERED WITH DRAPE AND ACHIEVED SEAL. -125MMHG/LOW/CONTINUOUS. NO ODOR OR REDNESS. SMALL BLOODY DRAINAGE. PT TOLERATED WELL.
--- NOTE | 2016-11-18 13:58 | NUR ---
bupernix given to for wnd vac dsng change.
--- NOTE | 2016-11-18 19:25 | NUR ---
CALL RECEIVED FROM DIONICIO MORTON, UNABLE TO STATE SECURITY WORD. CONFIRMED PT WAS IN ICU CONDITION STABLE ONLY.
--- NOTE | 2016-11-18 19:35 | NUR ---
REPORT RECEIVED AND CARE ASSUMED. INITIAL SHIFT ASSESSMENT COMPLETED. SEE FLOWSHEET. IVF VIA PUMP WITH ALL LINES LABELED AND DATED AND ARE CURRENT. SEE IVF FLOWSHEET. PT DROWSY AND SLOW WITH ANSWERS REPEATING SELF MUMBLING AT TIMES. ABLE TO CORRECTLY STATE YEAR AND STATED "I KNOW WHERE I AM AND I DONT WANT TO BE HERE" WHEN ASKED PLACE. PT ACTING VERY TIRED. DENIES WANTS OR NEEDS. WOUND VAC NOTED TO BE AT 125MMHG CONTINUOUS THERAPY TO RIGHT UPPER ABD. ROSEANN TO RIGHT UPPER ABD COMPRESSED AND WITH SCANT SEROSANG DRAINAGE 2ND ROSEANN TO RIGHT LATERAL CHEST ALSO COMPRESSED WITH SMALL AMOUNT OF SEROSANG DRAINAGE. DRESSING TO RIGHT UPPER ARM FISTULA IN PLACE PT WITH RESERVE RIGHT ARM POSTED TO DOOR AND ABOVE BED. PT BEING MONITORED PER STANDARD ICU PROTOCOL WITH ALL ALARMS SET AND VERIFIED. BED IN LOW POSITION AND CALL LIGHT IN REACH
--- NOTE | 2016-11-18 21:05 | NUR ---
HS MEDS GIVEN PER NOV. PT RELUNCTANT TO TAKE BUT DID SO.
--- NOTE | 2016-11-18 23:00 | NUR ---
SHIFT REASSESSMENT COMPLETED. NO SIGNIFICANT CHANGES. PT HAS BEEN RESTING WELL. CONTINUES WITH CONFUSION, NO CHANGE. CONTINUE TO TURN AND REPOSITION Q2H WITH PILLOWS USED TO FLOAT HEELS PROVIDE SUPPORT AND RELIEVE PRESSURE
--- NOTE | 2016-11-18 23:30 | NUR ---
REASSESSMENT COMPLETE, NO CHANGES NOTED, PT RESTING COMFORTABLY AT THIS TIME, NO NEEDS NOTED, VSS, CALL LIGHT IN REACH
[2016-11-19] VITALS (25 sets, daily range): BP systolic 86–130; BP diastolic 37–63
--- NOTE | 2016-11-19 01:00 | NUR ---
PT SLEEPING WELL TONIGHT. RESP REG AND NONLABORED
--- NOTE | 2016-11-19 03:00 | NUR ---
SHIFT REASSESSMENT COMPLETED. NO SIGNIFICANT CHANGES
[2016-11-19 04:19] LABS: BASOPHILS 0.2 % (0.0-2.0); EOSINOPHILS 2.5 % (0-7); HEMATOCRIT 27.7 % (36.0-48.0); HEMOGLOBIN 8.3 g/dL (12-16); IMMATURE GRANULOCYTES 0.6 % (0-5); LYMPHOCYTES 10.4 % (15-50); MCH 30.2 pg (26.0-34.0); MCV 100.7 fL (80.0-100.0); MEAN PLATELET VOLUME 11.8 fL (7.4-10.4); MONOCYTES 9.2 % (2-11); NEUTROPHILS 77.1 % (40-80); PLATELET COUNT 314 10x3/uL (130-400); RBC 2.75 10x6/uL (4.00-5.40); RDW 14.9 % (11.5-14.5); WBC 12.6 10x3/uL (4.8-10.8)
[2016-11-19 04:53] LABS: CALCIUM 9.4 mg/dL (8.5-10.1); CARBON DIOXIDE 24.9 mmol/L (21.0-32.0); POTASSIUM - SERUM 4.9 mmol/L (3.5-5.1); VANCOMYCIN - RANDOM 32.4 ug/mL (10.0-20.0)
[2016-11-19 04:59] LABS: CREATININE - SERUM 5.5 mg/dL (0.6-1.3)
--- NOTE | 2016-11-19 06:33 | NUR ---
AM MEDS GIVEN WITHOUT DIFFICULTY. PT SEEMS MORE CLEAR MENTALLY THIS MORNING. VSS. PT NOW ON 1.5L O2 PER NC AND TOLERATING WELL
--- NOTE | 2016-11-19 09:51 | NUR ---
ASSISTED PT WITH BREAKFAST TRAY, PT ATE APPROX 20% OF MEAL. HD STARTED.
--- NOTE | 2016-11-19 09:57 | OP ---
PATIENT NAME: MURRAY ELIZALDE I MEDICAL RECORD: [id number] :35 LOCATION:[facility] D.2307 ADMISSION DATE:11/11/16 SURGEON: GERRY SANTIAGO MD DATE OF OPERATION: 11/15/2016 REFERRED BY: Gary Urbina MD. PATIENT TYPE: Inpatient. 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 OPERATION PERFORMED: Right total mastectomy with primary closure over two closed suction drains and excision of a large mass of skin and subcutaneous fat from the right upper quadrant of the abdomen measuring approximately 12 x 7 inches. SURGEON: Gerry Santiago MD. ANESTHESIA: General with LMA per DELILAH and Dr. Weston. PREOPERATIVE NOTE: Murray Elizalde is an elderly white female who has long-term end-stage renal disease. The patient is on chronic hemodialysis with a right upper extremity HeRo. She has a past history of hypercoagulable state and also a past history of calciphylaxis and subcutaneous fatty tissue necrosis in the past requiring panniculectomy. She now has a painful mass in the right breast with necrosis of the overlying skin and areola, and a similar painful mass of indurated ischemic skin and fat necrosis in the subcutaneous tissues in her right upper quadrant. She is brought to the operating room with plans for total mastectomy and excision of the right upper quadrant lesion with wound VAC dressing. Under general anesthesia in supine position, the patient was prepped and draped in sterile manner. A transversely oriented ellipse was outlined for the incision in order to remove the entire breast and nipple and areola sparing as much skin as possible to prevent problems with wound dehiscence or wound necrosis in that area. The incision was made sharply and then flaps were raised with electrocautery and the rest was removed from medial to lateral along with investing pectoral fascia. There was no purulent material encountered. The wound was irrigated with saline. Two closed suction drains were placed from inferior stab incisions and the transverse wound closed with interrupted inverted 3-0 Vicryl and then interrupted simple vertical mattress sutures of 3-0 Vicryl. The incision was dressed with Maxorb Ag, Tegaderm and Cavilon skin prep. I then exposed the right upper quadrant of the abdomen which had already been prepped and draped as well. I outlined the incision I anticipated making which turned out to be a upside down boomerang shape with the boomerang on its back and legs up. The skin margins were sharply incised and the underlying tissues were divided with electrocautery and the subcutaneous tissues easily lifted up off of the muscular fascia. The entire specimen was approximately 7 x 12 inches. It was sent for routine histology as was the breast in a separate container. The wound was irrigated with saline. It was infiltrated with 0.25% Marcaine without epinephrine and wound VAC dressing applied with black foam to run that constant suction of 125 mmHg. We will begin 3 times a week dressing changes on Friday. At this point, the patient was awakened and in stable OPERATIVE REPORT [id number] MURRAY ELIZALDE I condition taken to the recovery room. Blood loss was less than 100 cc and unreplaced. All sponges, instruments, and needles were accounted for. Two closed suction drains 10-mm flat fluted Bard drains and the wound VAC dressing, which consisted of 1 piece of black foam sponge. TRANSINT:[id number] Voice Confirmation ID: [id number] DOCUMENT ID: [id number] GERRY SANTIAGO MD at 0957 CC: GARY URBINA MD [id number] DICTATION DATE: 11/15/161757 PRODUCTION CONTROL SPECIALIST: 11/15/[address] [facility] [address] [place] [address]
--- NOTE | 2016-11-19 12:40 | NUR ---
Mrs. Elizalde had bedside hemodialysis today via her right upper arm av graft from 0900 until 1203. Average blood flow was 400 mls/minute. Net fluid removed was only 810 mls. Pt. was very hypotensive and restless during treatment. Rn had to medicate for pain. Post vital signs were: B/P:102/31, HR,87, Temp:96.2, Resps:16.
--- NOTE | 2016-11-19 16:16 | NUR ---
Patient Name: MURRAY AGUILAR Encounter No: [id number] : 1935 Primary Insurance: MEDICARE A & B Anticipated DC Date: Planned Disposition: Intermediate Acute Care Facility External Planned Provider: YONY ONEILL DCP follow-up note: CM RECEIVED CALL FROM BAKARI, ASSESSMENT AND REFERRAL NURSE FOR YONY ONEILL, . BAKARI NEEDS TO SEE PT'S WOUND UNDER THE WOUND VAC TO COMPLETE ASSESSMENT FOR ADMISSION DETERMINATION. VICKIE SPOKE TO GUERA, WOUND NURSE FOR [place]; BAKARI WILL MEET GUERA IN THE MORNING AT ABOUT 0815 HOURS TO BE PRESENT FOR WOUND VAC CHANGE TO OBSERVE THE WOUND. CM WAITING ADMISSION DETERMINATION FROM YONY ONEILL COLEMAN. Michael Brunson, CASE MANAGEMENT
--- NOTE | 2016-11-19 19:30 | NUR ---
REPORT RECEIVED AND CARE ASSUMED. INITIAL SHIFT ASSESSMENT COMPLETED SEE FLOWSHEET. NOTE IVF DUE TO BE CHANGED. IV LINES DATED LABELED AND ARE CURRENT. ALL FLUIDS PER PUMPS. PT IS BEING MONITORED PER STANDARD ICU PROTOCOL WITH ALL ALARMS SET AND VERIFIED. PT IS ABLE TO ASSIST WITH REPOSITIONING MINIMALLY. USING PILLOWS TO ELEVATE ARMS, FLOAT HEELS, PROVIDE SUPPORT AN RELIEVE PRESSURE. BED IS IN LOW POSITION AND CALL LIGHT IS IN REACH. PT STATES SHE IS TIRED DUE TO HAVING DIALYSIS TODAY DENIES PAIN AT THIS TIME. NOTE THE ROSEANN DRAINS EACH WITH SCANT AMOUNT OF SEROSANG DRAINAGE ARE WNL AND COMPRESSED. WOUND VAC PROVIDING CONTINUOUS THERAPY AT 125MMHG WITH SCANT AMOUNT OF DRAINAGE IN TUBING.
--- NOTE | 2016-11-19 21:55 | NUR ---
PT C/O BACK ACHE WHEN BEING REPOSITIONED FOR ADMINISTRATION OF MEDICATIONS. MEDS GIVEN DOCUMENTED ON MAR
--- NOTE | 2016-11-19 23:00 | NUR ---
SHIFT REASSESSMENT COMPLETED WITH NO SIGNIFICANT CHANGES
[2016-11-20] VITALS: BP 103/43
[2016-11-20 01:00] VITALS: BP 100/41
--- NOTE | 2016-11-20 01:00 | NUR ---
PT HAS BEEN RESTING WELL THIS EVENING. RESP REG AND NONLABORED
[2016-11-20 02:00] VITALS: BP 109/66
--- NOTE | 2016-11-20 03:00 | NUR ---
SHIFT REASSESSMENT COMPLETED NO SIGNIFICANT CHANGES. SEE FLOWSHEET
[2016-11-20 03:58] LABS: BASOPHILS 0.2 % (0.0-2.0); EOSINOPHILS 0.9 % (0-7); HEMATOCRIT 26.3 % (36.0-48.0); IMMATURE GRANULOCYTES 0.6 % (0-5); LYMPHOCYTES 14.4 % (15-50); MCH 30.8 pg (26.0-34.0); MCHC 30.4 g/dL (31.0-37.0); MCV 101.2 fL (80.0-100.0); MEAN PLATELET VOLUME 11.6 fL (7.4-10.4); MONOCYTES 9.9 % (2-11); PLATELET COUNT 337 10x3/uL (130-400); WBC 10.6 10x3/uL (4.8-10.8)
[2016-11-20 04:13] LABS: CALCIUM 8.7 mg/dL (8.5-10.1); VANCOMYCIN - RANDOM 23.3 ug/mL (10.0-20.0)
[2016-11-20 04:29] LABS: ANION GAP 12.3 mmol/L (8-16); CARBON DIOXIDE 31.3 mmol/L (21.0-32.0); CREATININE - SERUM 3.4 mg/dL (0.6-1.3); POTASSIUM - SERUM 3.6 mmol/L (3.5-5.1)
--- NOTE | 2016-11-20 05:00 | NUR ---
PT AWAKE AT THIS TIME. OFFERED A BATH AND PT REFUSED ADAMANTLY
--- NOTE | 2016-11-20 06:26 | NUR ---
GLUCOSE WAS 57 PER LAB PT GIVEN SOME JUICE AND RECHECKED AT 54. PT NOW GIVEN PEANUT BUTTER AND SYRUP.
--- NOTE | 2016-11-20 06:30 | NUR ---
NO VISITORS AT THIS TIME
[2016-11-20 07:00] VITALS: BP 115/41
[2016-11-20 08:00] VITALS: BP 137/47
[2016-11-20 09:00] VITALS: BP 138/49
--- NOTE | 2016-11-20 09:23 | NUR ---
NUTRITION MONITORING & EVAL PT WITH POOR INTAKE PUREED RENAL BREAKFAST. PT STATES SHE IS "NOT VERY HUNGRY". ENCOURAGED PO INTAKE. RD FOLLOWING
--- NOTE | 2016-11-20 09:29 | NUR ---
WOUND CARE REASSESSMENT/VAC DRESSING CHANGE: INCISION RIGHT BREAST MEASURING 14CM IN LENGTH. SUTURES INTACT. NO REDNESS, ODOR, EDEMA. SMALL AMOUNT OF BLOODY DRAINAGE NOTED. GENTLY CLEANSED WITH WOUND TELEVISION PROGRAM DIRECTOR AND PATTED DRY. COVERED WITH A STRIP OF MAXORB AG AND SECURED WITH OPSITE. WOUND VAC DRESSING CHANGE WOUND TYPE: SURGICAL WOUND LOCATION: RIGHT UPPER QUAD ABDOMEN WOUND AGE IN MONTHS: WEEK DEBRIDEMENT ATTEMPTED IN LAST 10 DAYS? DATE/TYPE: SERIAL DEBRIDEMENTS REQUIRED? MEASUREMENT DATE: 11/20/16 10CM X 20CM X 2.6CM X 2.7CM FROM 10-1 OCLOCK FULL THICKNESS? YES MUSCLE, TENDON OR BONE EXPOSED? NO - SUBQ TISSUE/ADIPOSE UNDERMINING? YES SEE ABOVE TUNNELING/SINUS? NO APPEARANCE OF WOUND BED : RED WITH ADIPOSE TISSUE EXUDATE (AMOUNT, COLOR, ODOR): SMALL,SEROSANGUINOUS, NO ODOR FOAM TYPE:BLACK # OF PIECES USED: 3 PIECES SETTINGS: -125MMHG LOW CONTINUOUS PT TOLERATED WELL. WOUND CARE WILL CONTINUE MONITORING.
--- NOTE | 2016-11-26 08:17 | EC ---
PATIENT:MURRAY AGUILAR I DATE OF SERVICE: 11/11/16 SEX: F MEDICAL RECORD: [id number] DATE OF : 35 LOCATION:[facility] D230 AGE OF PATIENT: 81 ADMISSION DATE: 11/11/16 REFERRING PHYSICIAN: INTERPRETING PHYSICIAN: CAIO GARVEY M.D. ECHOCARDIOGRAM REPORT ECHO CHARGES 4 ECHO COMPLETE CLINICAL DIAGNOSIS: CHF/ESRD ECHOCARDIOGRAPHIC MEASUREMENTS (adult normal given) AC root (d.<3.7cm) 3.1 LV Septum d (<1.2 cm> 1.8 Valve Excursion 1.7 LV Septum (systole) 2.4 Left Atria (s.<4.0cm> 3.9 LVPW d(<1.2cm) 1.7 RV (d.<2.3cm) 2.5 LVPW (sytole) 1.9 LV diastole(<5.6CM) 3.8 MV E-F(>70mm/sec) LV systole 1.7 LVOT Diameter 1.7 MV exc.(>10mm) Est.ejection fraction (50-75%) Pericardial Effusion N DOPPLER: LVIT A 140 E 159 LA RVSP 54.0 LVOT 134 AOP1/2T Asc. Ao 199 RVOT 78.0 RA PA 153 AV Gradient Peak 16.0 AV Mean 8.5 AV Area 1.6 MV Gradient Peak 11.2 MV Mean 6.0 MV Area COMMENTS: Incendiary Powder Mixer: Erin LYONSOE Supervisory Clerk:Keri Garvey TAPE# PACS DATE OF SERVICE: 11/13/2016 REFERRING PHYSICIAN: Willard Urbina M.D. INDICATION: CHF. DESCRIPTION: Left ventricle demonstrates left ventricular hypertrophy. No wall motion abnormalities are noted. Estimated ejection fraction is 60%. Mitral valve demonstrates mitral annular calcification. There is mild regurgitation seen. Left atrium is normal in size. The aortic valve leaflets are slightly ECHOCARDIOGRAM REPORT [id number] MURRAY AGUILAR I thickened. There is no stenosis or regurgitation seen. Right ventricle is mildly dilated. Tricuspid valve is normal. There is mild regurgitation seen. Right ventricular systolic pressure is elevated at 54 mmHg. There is no pericardial effusion noted. IMPRESSION: 1. Left ventricular hypertrophy with preserved ejection fraction of 60%. 2. Moderate mitral regurgitation. 3. Aortic valve sclerosis without stenosis. 4. Mild tricuspid regurgitation with elevated pulmonary pressures. TRANSINT:[id number] Voice Confirmation ID: [id number] DOCUMENT ID: [id number] CAIO GARVEY M.D. at 0817 CC: [id number] DICTATION DATE: 11/13/16 1631 WARRANTY ADMINISTRATOR: 11/14/16 0339 DIS IN 11/20/16 [facility] [address] [place] [id number]
== END 2016-11-20 12:13 | disposition short-term general hospital (02) | DRG 622 ==
LOC: D.SDCHOLD 09:31 → D.M2 09:31 → D.ICU 09:31 → D.M2 09:40 → D.ICU 15:47 → D.M2 11-13 09:25 → D.ICU 11-15 20:05
PROVIDERS: Anesthesiology; Internal Medicine Nephrology; Surgery; ADMIT Internal Medicine Nephrology
PROC: 5A1D60Z (ICD-10-PCS; principal; 2016-11-12)
PROC: 0HTT0ZZ Resection of Right Breast, Open Approach (ICD-10-PCS; 2016-11-15)
PROC: 0JB80ZZ Excision of Abdomen Subcutaneous Tissue and Fascia, Open Approach (ICD-10-PCS; 2016-11-15 14:00)
DX: E83.59 Other disorders of calcium metabolism (principal); N18.6 End stage renal disease; G93.41 Metabolic encephalopathy; I12.0 Hypertensive chronic kidney disease with stage 5 chronic kidney disease or end stage renal disease; N64.1 Fat necrosis of breast; L94.2 Calcinosis cutis; N63 Unspecified lump in breast; R53.83 Other fatigue; E03.9 Hypothyroidism, unspecified; Z99.2 Dependence on renal dialysis; I48.91 Unspecified atrial fibrillation; D63.1 Anemia in chronic kidney disease; E83.39 Other disorders of phosphorus metabolism; I73.9 Peripheral vascular disease, unspecified; G62.9 Polyneuropathy, unspecified; E87.6 Hypokalemia; Z95.0 Presence of cardiac pacemaker